=== PATIENT | female | born 1955 | race Caucasian/White ===

== ENCOUNTER 2018-02-12 12:43 | Outpatient (CLI) ==
[2015-12-06 17:02] VITALS: BMI 33.9
--- NOTE | 2018-02-12 13:06 | DI ---
EXAM: Two views of the chest. History: Cough. Comparison: Chest radiograph 04/11/2016 Findings: Heart size is normal. No focal consolidation. No appreciable pleural fluid and no pneumo thorax. Calcified granulomas again seen within the thorax. No acute osseous abnormalities. Impression: No acute cardiopulmonary process. No change compared to the prior study
== END 2018-02-12 12:44 | disposition home or self-care (01) ==
LOC: RAD 12:43
PROVIDERS: ATTEND Nurse Practitioner Family
DX: R05 Cough (principal)